=== PATIENT | female | born 1965 | race African-American/Black ===

== ENCOUNTER 2019-07-21 10:21 | Emergency (ER) | payer MEDICARE, MEDICAID ==
[~2019-07-21] VITALS: Ht 162.6 cm; Wt 81.8 kg
[2019-07-21 10:24] VITALS: BP 170/100
--- NOTE | 2019-07-21 10:32 | NUR ---
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 Pt states that she does not trust the pharmacy she got her medications from and that is why she has not been taking her meds. Pt resistant to changing into gown, pt convinced to change however she is refusing to take off her hat & to give her purse to RN "until she talks to a doctor". Pt's suitcase, medications & some clothing secured. Pt arrived from [place] yesterday. PMH: schizophrenia, bipolar
--- NOTE | 2019-07-21 10:50 | NUR ---
cycle director: SOFY Abbott at bedside to assess pt
--- NOTE | 2019-07-21 11:10 | NUR ---
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 to prepare discharge paperwork.
== END 2019-07-21 12:00 | disposition home or self-care (01) ==
LOC: ED 11:09
DX: F31.13 Bipolar disorder, current episode manic without psychotic features, severe (principal); I10 Essential (primary) hypertension
CPT/HCPCS: 99284

== ENCOUNTER 2019-12-30 18:54 | Emergency (ER) | payer MEDICARE, MEDICAID ==
[~2019-12-30] VITALS: Ht 157.5 cm; Wt 61.8 kg
[2019-12-30 18:59] VITALS: BP 110/79
[2019-12-30] MEDS ORDERED: FLUCONAZOLE 100 MG TABLET ONE (19:59)
[2019-12-30] MEDS ORDERED: FLUCONAZOLE 100 MG TABLET PO ONE (20:00)
--- NOTE | 2019-12-30 20:08 | NUR ---
PT REFUSING ORAL MEDICATIONS, STATES "I DON'T TAKE PILLS, NOT UNLESS THEY ARE FROM MY PHARMACIST. I NEED A PHARMACIST TO REVIEW THAT FIRST." PT ERRATIC AND LABILE. DENIES ANY FURTHER NEEDS OR CONCERNS AT THIS TIME, CALL LIGHT IN REACH. ERP NOTIFIED.
== END 2019-12-30 20:29 | disposition home or self-care (01) ==
LOC: ED 19:14
DX: B35.4 Tinea corporis (principal); R21 Rash and other nonspecific skin eruption; I10 Essential (primary) hypertension; Z87.891 Personal history of nicotine dependence
CPT/HCPCS: 99283